=== PATIENT | female | born 1975 | race African-American/Black ===

== ENCOUNTER 2022-03-25 19:44 | Emergency (ER) | payer BC, SELFPAY ==
--- NOTE | 2022-03-25 19:46 | ED.URI ---
HPI - URI/Sore Throat General Stated Complaint: fever/uri Time Seen by Provider: 03/25/22 19:46 Source: patient Mode of arrival: ambulatory Limitations: no limitations History of Present Illness HPI Narrative: Joanne is a 46-year-old female patient presenting to the clinic today with complaints of a fever, chills,bodyaches, and cough. She also reports that she was treated for strep approximately 1 week ago. She is just finishing up her antibiotic and just finished up her prednisone 2 days ago. States that she felt better while on the prednisone but now that she is off the prednisone she feels as though she is going downhill again. MD elicited complaint: sore throat and nasal congestion Related Data Home Medications Medication Instructions Recorded Confirmed fluticasone propionate 50 50 mcg intranasal DIRECTED 03/25/22 03/25/22 mcg/actuation nasal spray,suspension gabapentin 100 mg capsule 100 mg PO DIRECTED 03/25/22 03/25/22 loratadine 10 mg tablet 10 mg PO DAILY 03/25/22 03/25/22 losartan 100 1 tablet PO DAILY 03/25/22 03/25/22 mg-hydrochlorothiazide 25 mg tablet tizanidine 4 mg tablet 4 mg PO DIRECTED 03/25/22 03/25/22 Allergies Allergy/AdvReac Type Severity Reaction Status Date / Time erythromycin base Allergy Unknown Other Verified 03/25/22 19:46 promethazine Allergy Unknown Other Verified 03/25/22 19:46 Review of Systems Review of Systems: Pertinent positives per HPI. Patient denies any rash, headache, visual changes, dizziness, shortness of breath, chest pain, palpitations, nausea, vomiting, diarrhea, constipation, abdominal pain, or any urinary issues. [facility] Comments At the time of my signature, I reviewed and agree with the nursing past medical, surgical, social, and family history. There is no relevant family history pertinent to the patient complaint. Exam Narrative: General: Well-developed, obese, in no apparent distress Head: Normocephalic, atraumatic Eyes: Pupils equally round and reactive to light bilaterally, EOM intact, sclera and conjunctive clear, no discharge, lids normal Ears: TMs intact and clear, ear canals clear, no drainage, grossly hearing normal. Nose: Nares patent, clear nasal discharge, no inflammation, no sinus tenderness. Mouth: Oral pharynx without lesions or masses, good dentition, MMM. postnasal drip Neck: Supple, trachea midline, no enlargement of anterior or posterior cervical nodes, no thyroid masses or goiter palpable. Cardio: Regular rate and rhythm, s1 and s2 normal, no murmur appreciated. Resp: Clear to auscultation bilaterally, no rhonchi, rales, wheezing or rubs Course Course Emergency Course: Portions of this record may have been created with voice recognition software. Level of Care: Express Care Visit Vital Signs Vital signs: Vital signs reviewed MDM - URI/Sore Throat MDM Narrative Medical decision making narrative: At the time of visit patient is resting comfortably on the exam table. Patient just finished a round of antibiotics and steroid for strep. Her foster son was negative for flu, rsv, and strep. Patient was negative for covid. I suspect patient has URI/pharyngitis/ viral syndrome. Supportive measures were discussed with the patient she voiced understanding of discharge instructions and agrees to treatment plan. Differential Diagnosis Differential diagnosis: Likely upper respiratory infection, otitis media, sinusitis, viral infection, bronchitis, influenza, pharyngitis and other ( COVID) Discharge Plan Discharge Clinical Impression: Viral infection Upper respiratory infection Qualifiers: URI type: unspecified URI Qualified Code(s): J06.9 - Acute upper respiratory infection, unspecified Pharyngitis Qualifiers: Pharyngitis/tonsillitis etiology: unspecified etiology Qualified Code(s): J02.9 - Acute pharyngitis, unspecified Patient Disposition: Home, Self-Care Condition: Stable Instructions: Antibiotic Form,
[2022-03-25 19:58] VITALS: BP 152/97; PULSE 90; RESP 16; TEMP 36.8; O2SAT 98
== END 2022-03-25 20:30 | disposition home or self-care (01) ==
PROVIDERS: Emergency Provider Nurse Practitioner Family; PCP Nurse Practitioner Family
DX: J02.9 Acute pharyngitis, unspecified (principal); B34.9 Viral infection, unspecified; Z20.822 Contact with and (suspected) exposure to COVID-19
CPT/HCPCS: 87426; 99213; C9803; G0463